=== PATIENT | female | born 1995 | race Caucasian/White ===

== ENCOUNTER 2019-12-04 15:15 | Emergency (ER) | payer OTHER ==
[~2019-12-04] VITALS: Ht 157 cm; Wt 105.0 kg
[2019-12-04] MEDS ORDERED: HYDROcodone/APAP 5 MG/325 MG (LORTAB) TAB PO ONE (15:45)
--- NOTE | 2019-12-04 15:47 | ED General ---
General Chief Complaint: Laceration Stated Complaint: LACERATION TO NOSE Nursing Triage Note: PT WAS UNLOADING A WHEELCHAIR WITH THE VAN AT [facility] AND THE LOADING RAMP FELL AND HIS THE PT ON THE BRIDGE OF THE NOSE. TWO SMALL LACERATIONS. NO LOSS OF CONSCIOUSNESS. Nursing Sepsis Screen: No Definite Risk History of Present Illness Date Seen by Provider: Dec 04, 2019 Time Seen by Provider: 15:42 Initial Comments As above 24-year-old female was working with a wheelchair lift on a van part of this apparatus fell and hit her across the bridge of her nose she has a laceration across the upper bridge of the nose a little bit of swelling and ecchymosis she was not knocked unconscious but had significant bleeding and pain patient complains of nasal and head pain denies neck pain denies any other injury or active illness or concern Allergies and Home Medications Allergies Coded Allergies: venlafaxine (Verified Allergy, Unknown, 12/04/19) Patient Home Medication List Home Medication List Reviewed: Yes Review of Systems Review of Systems Constitutional: no symptoms reported EENTM: other (laceration and status post trauma to nose) Respiratory: no symptoms reported Cardiovascular: no symptoms reported Gastrointestinal: no symptoms reported Genitourinary: no symptoms reported Musculoskeletal: no symptoms reported Past Spaoidc-Tqkocy-Bieonh Hx Patient Social History Alcohol Use: Denies Use Recreational Drug Use: No Smoking Status: Current Everyday Smoker Type Used: Cigarettes 2nd Hand Smoke Exposure: Yes Recent Foreign Travel: No Contact w/Someone Who Travel: No Recent Infectious Disease Expo: No Recent Hopitalizations: No Physical Abuse: No Sexual Abuse: No Mistreated: No Fear: No Seasonal Allergies Seasonal Allergies: No Past Medical History Surgeries: Yes (D & C) Respiratory: No Cardiac: No Neurological: No Genitourinary: No Gastrointestinal: No Musculoskeletal: No Endocrine: No HEENT: No Cancer: No Psychosocial: No Integumentary: No Blood Disorders: No Physical Exam Vital Signs Vital Signs - First Documented 12/04/19 15:28 Temp 36.2 Pulse 100 Resp 16 B/P (MAP) 149/99 (116) Pulse Ox 98 O2 Delivery Room Air Capillary Refill : Less Than 3 Seconds Height, Weight, BMI Height: '" Weight: lbs. oz. kg; 42.00 BMI Method: General Appearance: Anxious, Mild Distress Eyes: Bilateral Eye PERRL, Bilateral Eye EOMI HEENT: PERRL/EOMI, TMs Normal, Pharynx Normal, Other (patient does not have deformity of the nose there is no shift away from midline there is mild swelling and ecchymosis there is a full-thickness laceration 2 cm across the upper bridge of the nose) Neck: Non Tender, Supple Respiratory: Chest Non Tender, Lungs Clear, Normal Breath Sounds Cardiovascular: Regular Rate, Rhythm Gastrointestinal: Normal Bowel Sounds, Non Tender, Soft Neurologic/Psychiatric: Alert, Oriented x3, No Motor/Sensory Deficits, hemodialysis technician II-XII Norm as Tested Procedures/Interventions Wound Location: Nose Wound Length (cm): 2 Wound's Depth, Shape: linear Wound Explored: clean Irrigated w/ Saline (ccs): 150 Betadine Prep?: No Anesthesia: 1% Lidocaine Volume Anesthetic (ccs): 5 Suture: Ethlion Suture Size: 5-0 Number of Sutures: 5 Progress/Results/Core Measures Suspected Sepsis Recent Fever Within 48 Hours: Yes Infection Criteria Present: None New/Unexplained Altered Menta: No Sepsis Screen: No Definite Risk SIRS Temperature: Pulse: 100 Respiratory Rate: 16 Blood Pressure 149 /99 Mean: 116 Results/Orders My Orders Orders - JERRY STUART MD Hydrocodone/Apap 5/325 Tablet (Lortab 5 (12/04/19 15:45) Ice: Apply To Affected Area (12/04/19 15:39) Ct Head/Maxillofacial Wo (12/04/19 15:19) Medications Given in ED Current Medications Medications Dose Ordered Sig/Dipak Route Start Time Stop Time Status Last Admin Dose Admin Acetaminophen/ Hydrocodone Bitart 1 tab ONCE ONCE PO 12/04/19 15:45 12/04/19 15:46 DC 12/04/19 15:49 1 TAB Vital Signs/I&O 12/04/19 15:28 Temp 36.2 Pulse 100 Resp 16 B/P (MAP) 149/99 (116) Pulse Ox 98 O2 Delivery Room Air Capillary Refill : Less Than 3 Seconds Blood Pressure Mean: 116 Progress Note : Progress Note CT head - negative CT face - CT maxillofacial shows a comminuted mildly impacted fracture of the superior aspect nasal bone No other fracture identified Departure Impression Primary Impression: Nasal fracture Qualified Codes: S02.2XXA - Fracture of nasal bones, initial encounter for closed fracture Additional Impression: Nasal laceration Qualified Codes: S01.21XA - Laceration without foreign body of nose, initial encounter Disposition: HOME, SELF-CARE Condition: Unchanged Departure-Patient Inst. Decision time for Depature: 16:33 Referrals: ISMAEL CHRISTIANSON MD (PCP/Family) Primary Care Physician Patient Instructions: Nose Fracture (DC) Add. Discharge Instructions: You do have a nasal fracture We will ask that you see Dr. Juma Sotomayor the ENT doctor in about 5 days please call [phone] to establish this appointment in 5 days the sutures can be removed and Dr. Sotomayor will be able to assess whether the nasal bone injury requires any kind of surgical intervention Generally, if the nose appears straight and you can breathe fine through both sides of the nose, surgery won't be needed Scripts Cephalexin (Keflex) 500 Mg Capsule 500 MG PO QID, #28 CAP Prov: JERRY STUART MD 12/04/19 Hydrocodone/Acetaminophen (Hydrocodone-Acetamin 5-325 mg) 1 Each Tablet 1 EACH PO QID for Pain, #20 TAB Prov: JERRY STUART MD 12/04/19 JERRY STUART MD Dec 04, 2019 15:47
--- NOTE | 2019-12-04 16:18 | Diagnostic Imaging Report ---
PROCEDURE: CT head and maxillofacial without contrast. TECHNIQUE: Multiple contiguous axial images were obtained through the head and facial bones without the use of intravenous contrast. Auto Exposure Controls were utilized during the CT exam to meet ALARA standards for radiation dose reduction. INDICATION: Traumatic head/face injury. Patient reports wheelchair loading ramp fell onto head and hit her on the bridge of the nose. No loss of consciousness. COMPARISON: None available. FINDINGS - CT BRAIN: BRAIN: No parenchymal hemorrhage, midline shift or mass effect. Gupta-white matter differentiation is well preserved. No acute infarct. Ventricles, sulci and basilar cisterns are normal. No white matter change. EXTRA-AXIAL SPACES: No subdural or epidural collections. CALVARIUM AND SOFT TISSUES: The calvarium is intact. The extracranial soft tissues are unremarkable. FINDINGS - CT FACIAL BONES: ORBITAL AND PERIORBITAL SOFT TISSUES: The globes are intact. No focal abnormality is noted in the retrobulbar fat. The extraocular muscles are intact. No significant periorbital soft tissue abnormality. FACIAL SOFT TISSUES: There is edema in the nasal soft tissues, most notably along the superior aspect of the bridge of the nose. Scattered punctate foci of gas are noted in the superficial soft tissues in this area. Facial soft tissues are otherwise unremarkable. ORBITAL SAMANIEGO: Intact. No fracture is demonstrated. PARANASAL SINUSES: There is minimal mucosal thickening in the ethmoid air cells. The paranasal sinuses and visualized mastoid air cells are otherwise clear. No acute bony abnormality involving the paranasal sinuses. NASAL BONES: There is a comminuted impacted fracture of the nasal bone. There is mild deviation of the nasal septum to the right. ZYGOMATIC ARCHES: Normal. PTERYGOID PLATES: Normal. MAXILLA AND ALVEOLUS: Normal. MANDIBLE: Normal. No fracture or dislocation. IMPRESSION: - CT BRAIN: No acute intracranial pathology. IMPRESSION: - CT MAXILLOFACIAL: There is a comminuted, mildly impacted fracture of the nasal bone. There is associated soft tissue swelling and subcutaneous gas. No other facial fracture is identified. Dictated by: Dictated on workstation # [id number]
[2019-12-04] MEDS ORDERED: HYDR-83 PO (16:39)
[2019-12-04] MEDS ORDERED: CEPH-507 PO (16:39)
[2019-12-04 16:44] VITALS: BP 121/64
--- OUTSIDE RECORDS SUMMARY | 2019-12-04 19:26 | XMS REPORT | Continuity of Care Document ---
Author Organization Unknown Address Unknown Phone Unavailable Allergies Active Description Code Type Severity Reaction Onset Reported/Identified Relationship to Patient Clinical Status Yes venlafaxine [id number] Drug Aller gy Unknown N/A 12/04/2019 Medications There is no data. Problems There is no data. Procedures There is no data. Results Test Result Range HIV ANTIGEN/ANTIBODY - 11/15/19 08:40 HIV AG/AB, 4TH GEN NON-REACTIVE NON-JAMARI CTIVE Encounters ACCT No. Visit Date/Time Discharge Status Pt. Type Provider Facility Loc./Unit Complaint [id number] 11/15/2019 08:15:00 11/15/2019 23:59: 59 CLS Outpatient ISMAEL CHRISTIANSON [facility] [id number] 11/15/2019 08:15:00 Document Registration [id number] 12/04/2019 15:17:00 020 16:45:00 DIS Emergency NARCISO BLACKMON, JERRY Kang [facility] FS LACERATION TO NOSE
--- OUTSIDE RECORDS SUMMARY | 2019-12-04 19:26 | XMS REPORT ---
Author Author Ruby CHRISTIANSON ISMAEL Organization [facility] Address [address] [place] [address] Care Team Providers Care Ride Assembly Supervisor Name Role Phone ISMAEL CHRISTIANSON Unavailable PROBLEMS Type Condition ICD9-CM Code SIV08-TP Code Onset Dates Condition S tatus SNOMED Code Problem Normal labor 650 Apr, 0 3587 4009 Problem Normal labor O80 Apr, 0 3587 4009 Problem Tobacco use 305.1 Jul, 0 16651 3000 Problem Depression 311 05 Jun, 2008 0 253116 07 Problem MRSA (methicillin resistant staph aureus) culture posi tive Z22.322 May, 0 255616003 Problem Depression F32.9 05 Jun, 2008 0 845567 07 Problem Tobacco use Z72.0 Jul, 0 80626 3000 Problem MRSA (methicillin resistant staph aureus) culture posi tive V02.54 May, 0 [id number] ALLERGIES Substance Reaction Event Type Date Status VENLAFAXINE Rash Non Drug Allergy Jul, Active ENCOUNTERS Encounter Location Date Diagnosis [address] [address] Aug, [address] [address] Jul, Physical exam, pre-employment Z02.[address] [address] Jul, Drug screening, pre-employment Z02.[address] [address] 15 Jun, 2018 [facility] [place] [address] [id number] [address] [place] [phone] Apr, [facility] [place] [address] [id number] [address] [place] [phone] Apr, [facility] [place] [address] [id number] [address] [place] [phone] Apr, [facility] [place] [address] [id number] [address] [place] [phone] Apr, [facility] [place] [address] [id number] [address] [place] [phone] Apr, [facility] [place] [address] [id number] [address] [place] [phone] Apr, [facility] [place] [address] [id number] [address] [place] [phone] Mar, [facility] [place] [address] [id number] [address] [place] [phone] Mar, [facility] [place] [address] [id number] [address] [place] [phone] Mar, [facility] [place] [address] [id number] [address] [place] [phone] Jan, [facility] [place] [address] [id number] [address] [place] [phone] Jan, Evaluation regarding contrac eption options Z30.09 [facility] [address] [id number] [address] [place] [phone] September, Encounter for dental examina tion Z01.20 [facility] [address] [id number] [address] [place] [phone] Aug, Dental examination Z01.20 [facility] [address] [id number] [address] [place] [phone] Aug, Encounter for dental examina tion Z01.20 [facility] [address] [id number] [address] [place] [id number] Jul, Dental examination Z01.20 an d Dental caries K02.9 [facility] [place] [address] [id number] [address] [place] [phone] Apr, [facility] [address] [facility] [id number] [address] [place] [address] Mar, IMMUNIZATIONS No Known Immunizations SOCIAL HISTORY Never Assessed REASON FOR VISIT pre-employment physical PLAN OF CARE Activity Details Follow Up 1 Year Reason: VITAL SIGNS Height 62.4662931 in 2018-08-10 Weight 185 lbs 2018-08-10 BMI 33.82 kg/m2 2018-08-10 Blood pressure systolic 122 mmHg 2018-08-10 Blood pressure diastolic 70 mmHg 2018-08-10 MEDICATIONS Medication Instructions Dosage Frequency Start Date End Date Duration S tatus Hydrocodone-Acetaminophen 5-325 MG Apr, Unknown Sertraline HCl 50 MG Apr, Active Oxycodone-Acetaminophen 5-325 MG Apr, Unknown Ibuprofen Unknown Tylenol Unknown Vitamins-Iron Fumarate 27 Mg Iron-Folic Acid 0.8 Mg Tablet Active Ferrous Sulfate 325 (65 Fe) MG Jan, Unknown Ibuprofen 800 MG Apr, Un known Cyclobenzaprine HCl 10 MG Oct, Unknown Lexapro Unknown RESULTS No Results PROCEDURES Procedure Date Ordered Result Body Site TB INTRADERMAL TEST August 10, 2018 TB INTRADERMAL 2018-08-10 N/A INSTRUCTIONS MEDICATIONS ADMINISTERED No Known Medications MEDICAL (GENERAL) HISTORY Type Description Date Medical History Prednisone Medical History Bronchitis Medical History Pneumonia Hospitalization History Child
--- OUTSIDE RECORDS SUMMARY | 2019-12-04 19:26 | XMS REPORT ---
Author Author Ruby VILLATORO Organization [facility] [place] Address [address] [place] [address] Care Team Providers Care Operational Intelligence Analyst Name Role Phone BERNADETTE VILLATORO Unavailable PROBLEMS Unknown Problems ALLERGIES No Known Allergies ENCOUNTERS Encounter Location Date Diagnosis [facility] [place] [id number] [place] [phone] Jan, Evaluation regarding contrac eption options Z30.09 [facility] [id number] [place] [phone] September, Encounter for dental examina tion Z01.20 [facility] [address] [id number] [address] [place] [phone] Aug, Dental examination Z01.20 [facility] [address] [facility] [id number] [place] [phone] Aug, Encounter for dental examina tion Z01.20 [facility] [address] [facility] [id number] [address] [place] [address] [phone] Jul, Dental examination Z01.20 an d Dental caries K02.9 [facility] [place] [address] [facility] [id number] [address] [place] [phone] Apr, [facility] [place] [address] [facility] [id number] [address] [place] [phone] Mar, IMMUNIZATIONS No Known Immunizations SOCIAL HISTORY Never Assessed REASON FOR VISIT control consult -- rich madrigal, patient states she would like to get nexp zee PLAN OF CARE Activity Details Follow Up prn Reason: VITAL SIGNS Height 5'2" in 2017-01-27 Weight 196.0 lbs 2017-01-27 BMI 35.84 kg/m2 2017-01-27 MEDICATIONS Medication Instructions Dosage Frequency Start Date End Date Duration S tatus Ibuprofen Active Tylenol Active RESULTS No Results PROCEDURES No Known procedures INSTRUCTIONS MEDICATIONS ADMINISTERED No Known Medications MEDICAL (GENERAL) HISTORY Type Description Date Medical History Prednisone Medical History Bronchitis Medical History Pneumonia Hospitalization History Child
== END 2019-12-04 16:45 | disposition home or self-care (01) ==
LOC: ER FS 15:17
DX: S02.2XXA Fracture of nasal bones, initial encounter for closed fracture (principal); S01.21XA Laceration without foreign body of nose, initial encounter; F17.210 Nicotine dependence, cigarettes, uncomplicated; Z88.8 Allergy status to other drugs, medicaments and biological substances; W20.8XXA Other cause of strike by thrown, projected or falling object, initial encounter
CPT/HCPCS: 12011; 70450; 70486

== ENCOUNTER → 2019-12-05 | Outpatient (CLI) | payer OTHER ==
[~2019-12-05] MED LIST: CEPH-507 PO; HYDR-83 PO
--- NOTE | 2019-12-05 16:28 | Diagnostic Imaging Report ---
INDICATION: Injury and pain to the right foot. TIME OF EXAM: 2:52 p.m. EXAMINATION: Three views of the right foot were obtained. FINDINGS: The metatarsals are intact. Phalanges are intact. Midfoot and hindfoot are unremarkable. No fractures are seen. IMPRESSION: No acute bony abnormality is detected. Dictated by: Dictated on workstation # [id number]
--- NOTE | 2019-12-05 16:29 | Diagnostic Imaging Report ---
INDICATION: Injury and pain to the right ankle. TIME OF EXAM: 2:54 p.m. EXAMINATION: Three views of the right ankle were obtained. FINDINGS: The ankle alignment is normal. Ankle mortise is well maintained. Talar dome is smooth. No fracture or dislocation is identified. IMPRESSION: No acute bony abnormality is detected. Dictated by: Dictated on workstation # [id number]
--- NOTE | 2019-12-05 16:39 | Diagnostic Imaging Report ---
INDICATION: Pain and injury to the cervical spine. TIME OF EXAM: 2:47 PM Curvature and alignment of the cervical spine is normal. Vertebral body heights and disc spaces are well-maintained. Odontoid is intact. No fractures are seen. Prevertebral tissues are within normal limits. IMPRESSION: No acute bony abnormality is detected. Dictated by: Dictated on workstation # [id number]
== END ==
LOC: RAD FS 14:29
PROVIDERS: ATTEND Nurse Practitioner Family
DX: S99.911A Unspecified injury of right ankle, initial encounter (principal); S19.9XXA Unspecified injury of neck, initial encounter; S99.921A Unspecified injury of right foot, initial encounter
CPT/HCPCS: 72040; 73610; 73630

== ENCOUNTER → 2021-07-19 | Outpatient (CLI) | payer OTHER ==
[~2021-07-19] MED LIST changes: +ACHD5005 PO; -HYDR-83 PO
== END ==
LOC: LABNPT 14:50
PROVIDERS: ATTEND Registered Nurse Emergency
DX: N90.89 Other specified noninflammatory disorders of vulva and perineum (principal); L02.214 Cutaneous abscess of groin
CPT/HCPCS: 87529